=== PATIENT | male | born 1980 | race Caucasian/White ===

== ENCOUNTER 2017-06-28 09:07 | Emergency (ER) | payer MEDICAID, OTHER ==
[~2017-06-28] VITALS: Ht 165.1 cm; Wt 74.5 kg
[2017-06-28 09:11] VITALS: Ht 165.1 cm; Wt 74.5 kg
[2017-06-28] MEDS ORDERED: LABETALOL HCL 20MG INJ IV ONE ×2 (10:00→12:30)
[2017-06-28 10:11] LABS: BASOPHIL # 0.1 10^3/ul (0.0-0.1); EOSINOPHILS # 0.1 10^3/ul (0.0-0.5); EOSINOPHILS % 1.1 % (0.0-7.0); HEMATOCRIT 48.4 % (42.0-52.0); HEMOGLOBIN 16.8 g/dl (14.0-18.0); LYMPHOCYTES # 2.7 10^3/ul (0.8-2.9); LYMPHOCYTES % 36.9 % (15.0-51.0); MEAN CORPUSCULAR HEMOGLOBIN 30.1 pg (29.0-33.0); MEAN CORPUSCULAR HGB CONC 34.7 g/dl (32.0-37.0); MEAN CORPUSCULAR VOLUME 86.6 fl (82.0-101.0); MEAN PLATELET VOLUME 9.4 fl (7.4-10.4); MONOCYTE # 0.5 10^3/ul (0.3-0.9); NEUTROPHIL # 3.9 10^3/ul (1.6-7.5); NEUTROPHILS % 53.6 % (39.0-77.0); PLATELET COUNT 353 10^3/UL (140-415); RED BLOOD COUNT 5.59 10^6/ul (4.70-6.10); RED CELL DISTRIBUTION WIDTH 12.6 % (11.5-14.5); WHITE BLOOD COUNT 7.3 10^3/ul (4.8-10.8)
[2017-06-28 10:19] LABS: ADD UMIC YES; UR ASCORBIC ACID NEGATIVE (NEGATIVE); UR BILIRUBIN (Dip) NEGATIVE (NEGATIVE); UR BLOOD (Dip) 1+ mg/dL (NEGATIVE); UR CLARITY CLEAR (CLEAR); UR COLOR STRAW (YELLOW); UR GLUCOSE (Dip) NEGATIVE (NEGATIVE); UR KETONES (Dip) NEGATIVE (NEGATIVE); UR LEUKOCYTE ESTERASE (Dip) NEGATIVE Leu/ul (NEGATIVE); UR NITRITE (Dip) NEGATIVE (NEGATIVE); UR RBC 1 /HPF (0-5); UR SPECIFIC GRAVITY (Dip) 1.006 (1.003-1.030); UR TOTAL PROTEIN (Dip) NEGATIVE (NEGATIVE); UR UROBILINOGEN (Dip) NEGATIVE (NEGATIVE)
[2017-06-28 10:24] LABS: CALCIUM 9.6 mg/dl (8.4-10.2); CREATININE 0.67 mg/dl (0.61-1.24); POTASSIUM 4.1 mmol/L (3.5-5.1)
[2017-06-28] MEDS ORDERED: HYDR25TA6 PO (12:22)
[2017-06-28] MEDS ORDERED: ASPIRIN 81 MG TAB ONE (12:45)
[2017-06-28 13:00] VITALS: BP 154/107; PULSE 68; RESP 18; TEMP 98
--- NOTE | 2017-06-28 13:00 | ERD ---
ER Documentation Chief Complaint Date/Time DATE: 06/28/17 TIME: 12:58 Chief Complaint c/o frequent urination, blood in urine for a week; c/o HTN HPI Patient is a 37-year-old male with hypertension who presents with high blood pressure. He said that he has had high blood pressure for "a long time". He said that he now has pain with urination as well. He noticed a small amount of blood in his urine. He is not taking his blood pressure medications. He does not currently have a primary doctor in [place]. Upon review of old medical records this is the patient's first visit to the emergency department. ROS All systems reviewed and are negative except as per history of present illness. Medications Home Meds Active Scripts Hydrochlorothiazide* (Hydrochlorothiazide*) 25 Mg Tab, 25 MG PO DAILY, #30 TAB Prov:OFE REINA MD 06/28/17 PMhx/Soc Positive for hypertension Medical and Surgical Hx: pt denies Surgical Hx Hx Alcohol Use: Yes Hx Substance Use: No Hx Tobacco Use: No Smoking Status: Former smoker FmHx Family History: diabetes Physical Exam Vitals Vital Signs Date Time Temp Pulse Resp B/P Pulse Ox O2 Delivery O2 Flow Rate FiO2 06/28/17 10:25 71 18 185/128 99 Room Air 06/28/17 09:11 98.4 70 18 220/131 95 Physical Exam Const: No acute distress Head: Atraumatic Eyes: Normal Conjunctiva ENT: Normal External Ears, Nose and Mouth. Neck: Full range of motion..~ No meningismus. Resp: Clear to auscultation bilaterally Cardio: Regular rate and rhythm, no murmurs Abd: Soft, non tender, non distended. Normal bowel sounds Skin: No petechiae or rashes Back: No midline or flank tenderness Ext: No cyanosis, or edema Neur: Awake and alert Psych: Normal Mood and Affect Result Diagram: 06/28/17 0845 06/28/17 0845 Results 24 hrs Laboratory Tests Test 06/28/17 08:45 06/28/17 09:45 White Blood Count 7.310^3/ul Red Blood Count 5.5910^6/ul Hemoglobin 16.8g/dl Hematocrit 48.4% Mean Corpuscular Volume 86.6fl Mean Corpuscular Hemoglobin 30.1pg Mean Corpuscular Hemoglobin Concent 34.7g/dl Red Cell Distribution Width 12.6% Platelet Count 88074^3/UL Mean Platelet Volume 9.4fl Neutrophils % 53.6% Lymphocytes % 36.9% Monocytes % 7.0% Eosinophils % 1.1% Basophils % 1.0% Nucleated Red Blood Cells % 0.0/100WBC Neutrophils # 3.910^3/ul Lymphocytes # 2.710^3/ul Monocytes # 0.510^3/ul Eosinophils # 0.110^3/ul Basophils # 0.110^3/ul Nucleated Red Blood Cells # 0.010^3/ul Sodium Level 139mmol/L Potassium Level 4.1mmol/L Chloride Level 102mmol/L Carbon Dioxide Level 28mmol/L Anion Gap 13 Blood Urea Nitrogen 14mg/dl Creatinine 0.67mg/dl Glucose Level 105mg/dl Calcium Level 9.6mg/dl Urine Color STRAW Urine Clarity CLEAR Urine pH 7.0 Urine Specific [place] 1.006 Urine Ketones NEGATIVEmg/dL Urine Nitrite NEGATIVEmg/dL Urine Bilirubin NEGATIVEmg/dL Urine Urobilinogen NEGATIVEmg/dL Urine Leukocyte Esterase NEGATIVELeu/ul Urine Microscopic RBC 1/HPF Urine Microscopic WBC 0/HPF Urine Hemoglobin 1+mg/dL Urine Glucose NEGATIVEmg/dL Urine Total Protein NEGATIVEmg/dl Current Medications Medications (Trade) Dose Ordered Sig/Coleen Route PRN Reason Start Time Stop Time Status Last Admin Dose Admin Labetalol HCl (Labetalol) 20 mg ONCE ONCE IV 06/28/17 10:00 06/28/17 10:01 DC 06/28/17 09:56 Labetalol HCl (Labetalol) 20 mg ONCE ONCE IV 06/28/17 12:30 06/28/17 12:31 DC 06/28/17 12:31 Aspirin (Aspirin) 81 mg STK-MED ONCE .ROUTE 06/28/17 12:45 06/28/17 12:46 DC Procedures/MDM Patient is a 37-year-old male with hypertension who presents with hypertension. The patient was given labetalol 20 mg IV 2. Patient's laboratory studies are normal. The patient will be discharged with prescription for hydrochlorothiazide. At this point I doubt hypertensive emergency. I do believe the patient requires close follow-up with the local clinics as he does not currently have a primary doctor. There is no sign of urine infection or hematuria. The patient can return for any worsening symptoms. Critical Care: Time: 35 minutes excluding all billable procedures. Treatments/Evaluations: Close monitoring and treatment of unstable vital signs, cardiorespiratory, and neurologic status, while maintaining tight balance of fluid, respiratory, and cardiac interventions. Departure Diagnosis: Primary Impression: Hypertension Hypertension type: essential hypertension Qualified Code: I10 - Essential hypertension Condition: Fair Patient Instructions: High Blood Pressure (Hypertension) [facility] Usted se hanson hecho un examen mdico de control que le indica que no est en ashley condicin que requiera tratamiento urgente en el Departamento de Emergencia. Un estudio ms profundo y el tratamiento de fernández condicin pueden esperar sin ningn riesgo hasta que usted sea atendida/o en el consultorio de fernández mdico o ashley cl nickolas. Es responsabilidad suya arreglar ashley caterina para el seguimiento del khurram. MANEJO DE CONDICIONES NO URGENTES EN EL FUTURO 1) Si usted tiene un mdico de atencin primaria: Usted debera llamar a fernández mdico de atencin primaria antes de venir al departamento de emergencia. Despus de las horas de consultorio, fernández doctor o fernández asociado/a est disponible por telfono. El mdico o enfermero de jose en el servicio telefnico puede asesorarle por akash medio para atender el problema, o khurram contrario se puede programar ashley caterina. 2) Si usted no tiene un mdico de atencin primaria: Llame al mdico o clnica de referencia que aparece abajo reese las horas de consultorio para hacer ashley caterina para que le vean. CLINICAS: [facility] [phone] [phone] [facility] [phone] [facility] [phone] [facility] [facility] [phone] [facility] [phone] [address] Additional Instructions: Llame al doctor MAANA y shahid ashley CATERINA PARA DENTRO DE 1-2 PLUNKETT.Dgale a la secretaria que nosotros le instruimos hacer esta caterina.Avise o llame si fernández condicin se empeora antes de la caterina. Regresa aqui si peor o no mejor. OFE REINA MD Jun 28, 2017 13:00
== END 2017-06-28 13:04 | disposition home or self-care (01) ==
LOC: E/R 09:07
DX: I10 Essential (primary) hypertension (principal); R40.2252 Coma scale, best verbal response, oriented, at arrival to emergency department; R40.2142 Coma scale, eyes open, spontaneous, at arrival to emergency department; R40.2362 Coma scale, best motor response, obeys commands, at arrival to emergency department; Z87.891 Personal history of nicotine dependence
CPT/HCPCS: 36415; 80048; 81001; 85025; 96374; 96376; Z7502; Z7610